=== PATIENT | male | born 1965 | race Caucasian/White ===

== ENCOUNTER → 2016-12-05 | Outpatient (CLI) | payer BC | LOC: RAD 16:24 | PROVIDERS: ATTEND Chiropractor | DX: M54.41 Lumbago with sciatica, right side (principal) | CPT/HCPCS: 72110 ==

== ENCOUNTER 2016-12-08 09:52 | Emergency (ER) | payer BC ==
[~2016-12-08] VITALS: Ht 172.7 cm; Wt 81.8 kg
[2016-12-08] MEDS ORDERED: KETOROLAC 60 MG/2 ML (TORADOL) VIAL IM ONE (10:25)
[2016-12-08] MEDS ORDERED: PROMETHAZINE 25 MG/ML (PHENERGAN) 1 ML VIAL IM ONE (10:25)
[2016-12-08] MEDS ORDERED: HYDROmorphone 1 MG/ML (DILAUDID) SYRINGE IM ONE (10:25)
[2016-12-08] MEDS ORDERED: HYDROmorphone 2 MG/ML (DILAUDID) 1 ML SYRINGE IM ONE (12:00)
[2016-12-08 12:59] VITALS: BP 133/81
== END 2016-12-08 12:50 | disposition home or self-care (01) ==
LOC: EDUNIT# 09:52 → ED 09:55
DX: M51.17 Intervertebral disc disorders with radiculopathy, lumbosacral region (principal); M48.06 Spinal stenosis, lumbar region
CPT/HCPCS: 72131; 96372; 99282; J1170; J1885; J2550; 99283

== ENCOUNTER 2016-12-09 15:06 | Observation (INO) | payer BC ==
[~2016-12-09] VITALS: Ht 172.7 cm; Wt 83.2 kg
[2016-12-09] MEDS ORDERED: methylPREDNISolone 125 MG (Solu-MEDROL) VIAL IV ONE (16:15)
[2016-12-09] MEDS ORDERED: HYDROmorphone 1 MG/ML (DILAUDID) SYRINGE IV ONE (16:15)
[2016-12-09] MEDS ORDERED: ONDANSETRON 2 MG/ML (Z0FRAN) 2 ML VIAL IV ONE (16:15)
[2016-12-09] MEDS ORDERED: MAGNESIUM HYDROXIDE 80MG/ML (MILK OF MAGNESIA) 30 ML UDC PO PRN (17:20)
[2016-12-09] MEDS ORDERED: POLYETHYLENE GLYCOL 17 GM (MIRALAX) PACKET PO PRN (17:20)
[2016-12-09] MEDS ORDERED: CALCIUM CARBONATE CHEWABLE 300 MG (TUMS) TABLET PO PRN (17:20)
[2016-12-09] MEDS ORDERED: DOCUSATE SODIUM 100 MG (COLACE) CAP PO PRN (17:20)
[2016-12-09] MEDS ORDERED: ONDANSETRON 4 MG (ZOFRAN) ORAL DISSOLVE TAB PO PRN (17:20)
[2016-12-09] MEDS ORDERED: MAG HYDROX/AL HYDROX/SIMETH 200-200-20/5 ML (MAG-AL PLUS) 30 ML UDC PO PRN (17:20)
[2016-12-09] MEDS ORDERED: HYDROcodone/APAP 7.5 MG/325 MG (NORCO) TABLET PO PRN (17:20)
[2016-12-09] MEDS ORDERED: ACETAMINOPHEN 325 MG TAB (TYLENOL) PO PRN (17:20)
--- NOTE | 2016-12-09 17:30 | NUR ---
Pt admitted to 305 via w/c accompanied by Dr Enrique Delgado and daughter. Skin warm, dry, intact. Resprs nonlabored, even on RA. Pt rates R hip pain 04/03. SL to LAC intact. See admission database for additional assessment info.
[2016-12-09] MEDS ORDERED: NS FLUSH 3 ML PRN IV (17:35)
[2016-12-09] MEDS ORDERED: NS FLUSH 10 ML PRN IV (17:35)
[2016-12-09 17:46] VITALS: BP 170/94
--- NOTE | 2016-12-09 17:50 | NUR ---
MED REC COMPLETE--current med list obtained from previous ER admission. Patient received a script for [place] 7.5/325 mg on 12/08/16. Otherwise patient has no home meds.
[2016-12-09] MEDS: CYCLOBENZAPRINE 10 MG (FLEXERIL) TAB PO SCH (18:32)
[2016-12-09] MEDS: KETOROLAC 15 MG/ML (TORADOL) 1 ML VIAL IV SCH (18:32)
[2016-12-09] MEDS: LIDOCAINE (LIDODERM) 5% PATCH TOP SCH (18:35)
[2016-12-09 19:06] LABS: ALBUMIN 4.6 g/dL (3.4-5.0); ANION GAP 13.6 MEQ/L (3-15); CALCULATED IONIZED CALCIUM 3.9 mg/dL (3.8-4.6); TOTAL PROTEIN 8.1 g/dL (6.4-8.5)
[2016-12-09 19:24] LABS: BASOPHILS % (AUTO) 0 % (0-2); EOSINOPHILS # (AUTO) 0.1 10^3uL; EOSINOPHILS % (AUTO) 1 % (0-4); LYMPHOCYTES # (AUTO) 1.3 X10^3; MEAN CORPUSCULAR VOLUME 90 FL (80-100); MEAN PLATELET VOLUME 10.6 FL (6.0-9.5); MONOCYTES # (AUTO) 0.2 X10^3; MONOCYTES % (AUTO) 3 % (3-11); NEUTROPHILS # (AUTO) 6.1 X10^3; NEUTROPHILS % (AUTO) 79 % (51-67); PLATELET COUNT 284 10^3uL (150-450); WHITE BLOOD COUNT 7.71 10^3uL (4.0-11.0)
[2016-12-09 19:31] LABS: MEAN CORPUSCULAR HEMOGLOBIN 31.5 PG (26.0-34.0)
--- NOTE | 2016-12-09 19:32 | NUR ---
Pt resting in bed at this time. Up ad carly. Rates pain 5/10 in R hip, radiates down R leg. States his back doesn't hurt at this time. Skin warm, dry, intact. Resprs nonlabored, even on RA. SL intact. Denies needs. Call light within reach. Report given to Irais Roque RN; care relinquished.
[2016-12-10 00:10] VITALS: BP 126/80
[2016-12-10] MEDS: KETOROLAC 15 MG/ML (TORADOL) 1 ML VIAL IV SCH ×2 (01:31→06:43)
--- NOTE | 2016-12-10 01:37 | NUR ---
Patient denied needing assistance with any HS cares. Toothpaste, toothbush, washcloths provided.
[2016-12-10 07:20] LABS: BILIRUBIN,URINE Negative (Negative); CLARITY,URINE Clear; COLOR,URINE Yellow; GLUCOSE, URINE (UA) Trace (Negative); LEUKOCYTE ESTERASE ,URINE Negative (Negative); PH,URINE 5.5 (5.0 - 8.0); UROBILINOGEN,URINE 0.2 mg/dL (0.2-1.0)
--- NOTE | 2016-12-10 07:50 | NUR ---
Patient resting in bed upon shift assessment. Alert and oriented X3. Reports right lower back, right foot, and right hip pain rated 4/10 on pain scale. States "the pain is nothing like it was". Denies nausea or SOA. HR RRR. Lung sounds CTAB. Updated on plan of care for shift including pain medication regimen. Call light in reach.
[2016-12-10 08:04] VITALS: BP 173/83
[2016-12-10] MEDS: CYCLOBENZAPRINE 10 MG (FLEXERIL) TAB PO SCH (08:18)
[2016-12-10] MEDS: LIDOCAINE (LIDODERM) 5% PATCH TOP SCH (08:19)
[2016-12-10] MEDS ORDERED: NS FLUSH 3 ML DAILY IV SCH (09:00)
--- NOTE | 2016-12-10 11:06 | NUR ---
Discharge order received. IV discontinued with catheter intact. No redness or swelling noted at insertion site. Instructions provided with verbal and written understanding expressed. Denies pain at this time. Dismissed ambulatory to private car accompanied by RN. No further needs.
== END 2016-12-10 11:00 | disposition home or self-care (01) ==
LOC: ED 15:07 → MED/SURG 16:40
PROVIDERS: ADMIT Internal Medicine; ATTEND Internal Medicine
DX: M54.41 Lumbago with sciatica, right side (principal); M51.26 Other intervertebral disc displacement, lumbar region; M48.06 Spinal stenosis, lumbar region
CPT/HCPCS: 36415; 80053; 81003; 85025; 86140; 96374; 96375; 96376; 97140; 97161; 99218; 99283; J1170; J1885; J2405; J2930; 99282